=== PATIENT | male | born 1975 | race Caucasian/White ===

== ENCOUNTER → 2016-12-23 | Day surgery (SDC) | payer BC ==
[2016-12-14 13:08] VITALS: Ht 172.7 cm; Wt 84.1 kg
[~2016-12-23] VITALS: Ht 172.7 cm; Wt 84.1 kg
[~2016-12-23] MED LIST: ATROPINE SULFATE 0.1 MG/ML 5ML SYR IV PRN; BUPIVACAINE/EPINEPHRINE 0.5% MPF 1:200,000 30 ML VIAL ONE; CEFAZOLIN 2000 MG/60 ML D5W IV SCH; DEXAMETHASONE SOD INJ 4 MG/ML VIAL IV PRN; DEXAMETHASONE SOD INJ 4 MG/ML VIAL ONE; EpHEDrine SULFATE INJ 50 MG/ML AMP IV PRN; FENTANYL CITRATE INJ 50 MCG/1 ML 2 ML VIAL IV PRN; FENTANYL CITRATE INJ 50 MCG/1 ML 2 ML VIAL ONE; HEPARIN SOD 5000 UNIT/0.5 ML CARP SQ SCH; HYDR-5688 PO; HYDROCODONE/ACETAMOPHEN 5/325MG TAB PO PRN; IBUP-1050 PO; IBUPROFEN 600 MG TAB PO PRN; KETOROLAC TROMETHAMINE 30 MG/ML VIAL IV. PRN; KETOROLAC TROMETHAMINE 30 MG/ML VIAL ONE; LABETALOL HCL IV 5 MG/ML 20ML IV PRN; LACTATED RINGER'S 1000ML 1,000 ML IV SCH; LIDOCAINE HCL 2% 2 ML VIAL (20MG/ML) ONE; METOCLOPRAMIDE HCL INJ 5 MG/ML 2 ML VIAL IV PRN; MIDAZOLAM HCL 1 MG/ML 2ML VIAL ONE; MoRPHine SULFATE 10 MG/ML CARP/VIAL IV PRN; MoRPHine SULFATE 4 MG/ML 1 ML CARP\\VIAL IV PRN; ONDANSETRON INJ 2 MG/ML 2 ML VIAL IV PRN; ONDANSETRON INJ 2 MG/ML 2 ML VIAL ONE; PHENYLEPHRINE 100MCG/ML 5ML SYR IV PRN; PROPOFOL IV EMULSION 10 MG/ML 20 ML VIAL IV ONE; PSEU30TA20 PO; SODIUM CHLORIDE 0.9% 1000ML 1,000 ML IV SCH
--- NOTE | 2016-12-23 12:16 | History & Physical Bridge Note ---
H&P Re-Evaluation Bridge Note: I have examined the patient, reviewed the History & Physical and in the interval since the performance of the History & Physical I have noted the following changes of clinical significance: No changes noted
--- NOTE | 2016-12-23 12:18 | Discharge Instructions-SurgCtr ---
Discharge Instructions Visit Reason for Visit: Left Inguinal Hernia Discharge Discharge Diagnosis / Problem: left inguinal hernia Discharge Goals Goal(s): Decrease discomfort, Improve function Activity Recommendations Activity Limitations: as noted below Lifting Limitations: no more than 10 pounds Exercise/Sports Limitations: until after follow-up appointment May Resume Sexual Activity: after follow-up appointment Shower/Bathe: tomorrow Anesthesia . Post Anesthesia Instructions: If you have had General Anesthesia or IV Sedation: * Do not drive today. * Resume driving when surgeon permits. * Do not make important decisions or sign legal documents today. * Call surgeon for: 1. Temperature elevations greater than 101 degrees F. 2. Uncontrollable pain. 3. Excessive bleeding. 4. Persistent nausea and vomiting. 5. Medication intolerance (nausea, vomiting or rash). * For nausea and vomiting use only clear liquids such as: tea, soda, bouillon until nausea subsides, then gradually increase diet as tolerated. * If you have any concerns or questions, call your surgeon's office. If physician is unavailable and it is an emergency, call 911 or go to the nearest emergency room. . Instructions / Follow-Up Instructions / Follow-Up follow up with Dr. Egan in 1-2 weeks. Diet Recommendations Home Diet: resume previous diet Pending Studies Studies pending at discharge: no Medical Emergencies . Who to Call and When: Medical Emergencies: If at any time you feel your situation is an emergency, please call 911 immediately. . Non-Emergent Contact Non-Emergency issues call your: Primary Care Provider, Surgeon Call Non-Emergent contact if: temperature is above 101, your pain is not controlled, wound has increased drainage, wound has increased redness . . "Provider Documentation" section prepared by Wellington Egan.
--- NOTE | 2016-12-23 13:50 | [facility] Operative Report ---
Operative Report Operative Date Dec 23, 2016. Pre-Operative Diagnosis Left Inguinal Hernia Post-Operative Diagnosis left inguinal hernia Surgeon Dr. Yanique Egan [employer] Special[employer] Technician Surgeon(s) 0 Estimated Blood Loss 10CC Findings moderate sized direct inguinal hernia Specimens none Anesthesia general Complication(s) None Disposition Recovery Room / PACU I attest to the content of the Intraoperative Record and any orders documented therein. Any exceptions are noted below.
--- NOTE | 2016-12-23 14:21 | OPERATIVE REPORT ---
DATE OF OPERATION: 12/23/2016 PREOPERATIVE DIAGNOSIS: Left inguinal hernia. POSTOPERATIVE DIAGNOSIS: Direct left inguinal hernia. PROCEDURE: Open left inguinal hernia repair with mesh. SURGEON: Dr. Egan. ESTIMATED BLOOD LOSS: 10 mL. ANESTHESIA: General. COMPLICATIONS: No immediate complications. OPERATIVE NOTE: After informed consent was obtained, the patient was taken to the operating suite and placed in supine position. After successful intubation, the left groin area was shaved and sterilely prepped and draped in usual fashion. I made an inguinal incision with a 15 blade scalpel and carried it down through the soft tissue using electrocautery. The external oblique aponeurosis was skeletonized and incised with a fresh blade. It was opened distally through the external ring as well as for several centimeters proximally with the Metzenbaum scissor. Once in the inguinal canal, I bluntly delineated the anatomy. I was able to elevate the cord and cord structures off the pubic bone and placed a Moody drain around it. I examined the cord and cord structures for hernia sac. I was unable to find an indirect hernia sac. When I elevated the cord, there was a moderate sized direct inguinal hernia. This reduced easily with manual reduction. I then used a piece of polypropylene keyhole mesh as an onlay. It was secured distally to Kiet ligament, laterally along the shelving portion of Poupart ligament and medially along the rectus musculature. The "arms" of the mesh were wrapped around the cord and cord structures and secured to underlying muscle. All the sutures used were 0 Ethibond. At the end of the procedure, the mesh laid tension free. It did not appear to be impinging on the cord structures. We thoroughly irrigated the wound. I injected some Marcaine around the edges of the mesh for postoperative analgesia. Final irrigation was performed. I then closed the external oblique aponeurosis with 2-0 Vicryl in a running fashion. Soft tissue was irrigated and closed using 3-0 Vicryl and 4-0 Monocryl. Some additional Marcaine was injected around the skin for postoperative analgesia and skin glue used as a dressing. The patient was awakened, extubated, and transferred to recovery in stable condition. I attest to the content of the Intraoperative Record and any orders documented therein. Any exceptio ns are noted below.
--- NOTE | 2016-12-23 14:38 | Anesthesia Progress Nt - [facility] ---
Anesthesia Post Op Note Date & Time Dec 23, 2016 at 14:38 Vital Signs Pain Intensity: 1 Vital Signs Past 12 Hours Date Time Temp Pulse Resp B/P Pulse Ox O2 Delivery O2 Flow Rate FiO2 12/23/16 14:20 81 12 92 12/23/16 14:20 81 12 92 12/23/16 14:20 81 12 12/23/16 14:20 81 12 12/23/16 14:18 120/75 12/23/16 14:18 36.5 84 16 120/75 95 Room Air 12/23/16 14:18 120/75 12/23/16 14:15 89 15 12/23/16 14:15 89 15 12/23/16 14:15 88 15 94 12/23/16 14:15 88 15 94 12/23/16 14:13 134/82 12/23/16 14:13 134/82 12/23/16 14:10 82 13 100 12/23/16 14:10 82 13 100 12/23/16 14:10 85 13 12/23/16 14:10 85 13 12/23/16 14:08 129/77 12/23/16 14:08 129/77 12/23/16 14:05 94 18 100 12/23/16 14:05 92 18 12/23/16 14:05 92 18 12/23/16 14:05 94 18 100 12/23/16 14:03 127/81 12/23/16 14:03 127/81 12/23/16 14:00 100 18 12/23/16 14:00 98 18 100 12/23/16 14:00 100 18 12/23/16 14:00 98 18 100 12/23/16 13:58 129/86 12/23/16 13:58 129/86 12/23/16 13:55 96 17 12/23/16 13:55 94 17 135/75 100 12/23/16 13:55 94 17 135/75 100 12/23/16 13:55 96 17 12/23/16 13:54 94 16 12/23/16 13:54 93 16 100 12/23/16 13:49 92 17 100 12/23/16 13:49 36.5 92 20 129/85 100 Mask 10 12/23/16 13:49 92 17 12/23/16 11:22 36.6 76 16 130/82 97 Room Air Notes Mental Status: alert / awake / arousable, participated in evaluation Pt Amnestic to Procedure: Yes Nausea / Vomiting: adequately controlled Pain: adequately controlled Airway Patency, RR, SpO2: stable & adequate BP & HR: stable & adequate Hydration State: stable & adequate Anesthetic Complications: no major complications apparent
[2016-12-23 14:40] VITALS: TEMP 37.1
[2016-12-23 15:30] VITALS: BP 126/80; PULSE 86; O2SAT 97
== END | disposition home or self-care (01) ==
LOC: X.SURG 10:48
PROVIDERS: ATTEND Surgery
DX: K40.90 Unilateral inguinal hernia, without obstruction or gangrene, not specified as recurrent (principal); Z88.4 Allergy status to anesthetic agent

== ENCOUNTER → 2017-08-30 | Outpatient (CLI) | payer BC ==
[~2017-08-30] MED LIST changes: -ATROPINE SULFATE 0.1 MG/ML 5ML SYR IV PRN; -BUPIVACAINE/EPINEPHRINE 0.5% MPF 1:200,000 30 ML VIAL ONE; -CEFAZOLIN 2000 MG/60 ML D5W IV SCH; -DEXAMETHASONE SOD INJ 4 MG/ML VIAL IV PRN; -DEXAMETHASONE SOD INJ 4 MG/ML VIAL ONE; -EpHEDrine SULFATE INJ 50 MG/ML AMP IV PRN; -FENTANYL CITRATE INJ 50 MCG/1 ML 2 ML VIAL IV PRN; -FENTANYL CITRATE INJ 50 MCG/1 ML 2 ML VIAL ONE; -HEPARIN SOD 5000 UNIT/0.5 ML CARP SQ SCH; -HYDR-5688 PO; -HYDROCODONE/ACETAMOPHEN 5/325MG TAB PO PRN; -IBUPROFEN 600 MG TAB PO PRN; -KETOROLAC TROMETHAMINE 30 MG/ML VIAL IV. PRN; -KETOROLAC TROMETHAMINE 30 MG/ML VIAL ONE; -LABETALOL HCL IV 5 MG/ML 20ML IV PRN; -LACTATED RINGER'S 1000ML 1,000 ML IV SCH; -LIDOCAINE HCL 2% 2 ML VIAL (20MG/ML) ONE; -METOCLOPRAMIDE HCL INJ 5 MG/ML 2 ML VIAL IV PRN; -MIDAZOLAM HCL 1 MG/ML 2ML VIAL ONE; -MoRPHine SULFATE 10 MG/ML CARP/VIAL IV PRN; -MoRPHine SULFATE 4 MG/ML 1 ML CARP\\VIAL IV PRN; -ONDANSETRON INJ 2 MG/ML 2 ML VIAL IV PRN; -ONDANSETRON INJ 2 MG/ML 2 ML VIAL ONE; -PHENYLEPHRINE 100MCG/ML 5ML SYR IV PRN; -PROPOFOL IV EMULSION 10 MG/ML 20 ML VIAL IV ONE; -SODIUM CHLORIDE 0.9% 1000ML 1,000 ML IV SCH
--- NOTE | 2017-08-30 12:44 | DIAGNOSTIC IMAGING REPORT ---
CHEST 2 VIEWS ROUTINE HISTORY: Atypical CHEST PAIN, COUGH COMPARISON: Chest 01/26/2012. FINDINGS: The lungs are clear. Cardiac silhouette is normal in size. No pleural effusions. No pneumothorax. IMPRESSION: No acute process. Electronically signed by: Joon Veronica M.D. 08/30/2017 12:43 PM Dictated Date/Time: 08/30/2017 12:40 PM
== END | disposition home or self-care (01) ==
LOC: C.RAD1850 11:50
PROVIDERS: ATTEND Nurse Practitioner Family
DX: R07.89 Other chest pain (principal); R05 Cough